=== PATIENT | female | born 1960 | race African-American/Black ===

== ENCOUNTER → 2018-03-28 | Outpatient (CLI) | payer BC | END | disposition home or self-care (01) | LOC: KCIC 14:42 | DX: M47.896 Other spondylosis, lumbar region (principal); M25.78 Osteophyte, vertebrae; M51.36 Other intervertebral disc degeneration, lumbar region | CPT/HCPCS: 72100 ==

== ENCOUNTER → 2018-10-25 | Outpatient (CLI) | payer BC ==
--- NOTE | 2018-10-25 16:41 | KCIC ---
CLINICAL HISTORY: Right anterior neck mass COMPARISON: None available. TECHNIQUE: Ultrasound examination of the thyroid gland was performed FINDINGS: The right thyroid lobe measures 7.9 cm in length, 2.2 cm ap and 3.6 cm transverse. The left thyroid lobe measures 4.6 cm in length, 1.5 cm ap and 1.8 cm transverse. The thyroid isthmus measures 0.4 cm in thickness. A 5 x 4.8 x 4.3 cm mixed solid and cystic inferior right lower pole thyroid nodule is seen. This contains a few internal calcifications. A 1.1 x 0.7 x 0.8 cm left lower pole mixed solid and cystic thyroid is seen. There is no regional cervical lymphadenopathy. IMPRESSION: 1. The right lower pole thyroid nodule is a Ti-Rads 4 lesion and FNA is recommended given size >1.5 cm 2. The left lower pole mixed solid and cystic lesion is a TI-RADS 5 lesion and FNA is recommended since it measures >1 cm. Electronically signed by: Lavon Up MD (10/25/2018 4:37 PM) [facility]
== END | disposition home or self-care (01) ==
LOC: KCIC US 14:34
PROVIDERS: ATTEND Family Medicine
DX: E04.1 Nontoxic single thyroid nodule (principal)
CPT/HCPCS: 76536